=== PATIENT | male | born 1995 | race Caucasian/White ===

== ENCOUNTER 2021-05-22 17:06 | Emergency (ER) | payer MEDICAID ==
[~2021-05-22] VITALS: Ht 170.2 cm; Wt 70.4 kg
[2021-05-22] MEDS ORDERED: MOTRIN800 MG PO (18:28)
[2021-05-22] MEDS ORDERED: CLEOCIN300 MG PO (18:28)
[2021-05-22 18:41] VITALS: BP 106/60
== END 2021-05-22 18:41 | disposition home or self-care (01) ==
LOC: ED 17:06
DX: K02.9 Dental caries, unspecified (principal)

== ENCOUNTER 2022-07-26 19:10 | Emergency (ER) | payer OTHER ==
[2022-07-26] VITALS (10 sets, daily range): BP systolic 104–123; BP diastolic 68–75
[~2022-07-26] VITALS: Ht 170.2 cm; Wt 60.0 kg
[~2022-07-26 19:10] MED LIST: CLEOCIN300 MG PO; MOTRIN800 MG PO
[2022-07-26 20:52] LABS: BASO% 0.5 % (0-3); EOS% 2.3 % (0-8); HEMATOCRIT 38.8 % (39.0-50.0); HEMOGLOBIN 12.9 g/dl (14.0-18.0); MEAN CELL VOLUME 100.8 fL CALC (80.0-100.0); MEAN CORPUSCULAR HGB 33.5 pG CALC (26.0-32.0); MEAN CORPUSCULAR HGB CONC 33.2 g/dL CAL (32.0-36.0); MONO% 8.3 % (2-13); NEUT# 3.86 thou/uL (1.82-7.42); NEUT% 58.9 % (42-76); RED BLOOD COUNT 3.85 mill/uL (4.70-6.10); RED CELL DISTRI WIDTH 11.7 % (11.5-15.5)
[2022-07-26 21:05] LABS: ALBUMIN 4.3 g/dL (3.2-5.0); ALKALINE PHOSPHATASE 39 u/l (38-126); ANION GAP 8 (6-22 (CALC)); BILIRUBIN, TOTAL 0.5 mg/dL (0.2-1.3); BUN 15 mg/dL (9-20); BUN/CREATININE RATIO 16 (12-20 (CALC)); CARBON DIOXIDE 27 mmol/l (22-30); CHLORIDE 110 mmol/l (95-108); CREATININE 0.9 mg/dL (0.7-1.3); GFR FOR AFR.AMER. > 60 ML/MIN (>=60 (CALC)); GFR OTHER RACES > 60 ML/MIN (>=60 (CALC)); POTASSIUM 3.6 mmol/l (3.5-5.1); SGOT/AST 25 u/l (17-59); SODIUM 141 mmol/l (137-146); TOTAL PROTEIN 7.1 g/dL (6.3-8.2)
[2022-07-26] MEDS ORDERED: TORADOL PO (21:34)
== END 2022-07-26 21:58 | disposition home or self-care (01) ==
LOC: ED 19:10
PROVIDERS: Family Medicine
DX: R07.89 Other chest pain (principal); F17.210 Nicotine dependence, cigarettes, uncomplicated